=== PATIENT | female | born 1980 | race Caucasian/White ===

== ENCOUNTER → 2020-05-13 07:36 | Outpatient (CLI) | payer OTHER, SELFPAY ==
--- NOTE | 2020-05-12 17:38 | PCM.HP.BLA ---
History and Physical Date of Admission: 05/13/20 Louisa Jacobo 1980 ? ? REFERRING PHYSICIAN: Devin Mueller* ? CHIEF COMPLAINT: Consult ? HPI: The patient is a 40 year old female presents with abnormal left breast radiographs. She denies palpable breast masses. She denies nipple discharge. She denies previous breast biopsies or breast surgery. She denies breast pain. No family history of breast or ovarian cancer. Grandmother had cervical cancer. ? Mammograms 04/15/2020 There is a 6 mm irregular mass with an indistinct margin and pleomorphic calcifications in the left breast at 11 o'clock anterior depth. No other significant masses or calcifications are seen in the breast. US 04/15/2020 There is 0.6 cm x 0.5 cm x 0.4 cm irregular mass with an indistinct margin in the left breast at 11 o'clock middle depth 4 cm from the nipple. ?This irregular mass is hypoechoic with posterior acoustic shadowing. ?This correlates with mammography findings. IMPRESSION: SUSPICIOUS FINDING - BIOPSY SHOULD BE CONSIDERED The 0.6 cm x 0.5 cm x 0.4 cm irregular mass in the left breast is suspicious of malignancy. ?An ultrasound guided biopsy is recommended. ? ? PAST MEDICAL HISTORY ? Abnormal Pap smear of cervix 01/2014 ? Generalized anxiety disorder ? ? Hypertension ? ? PAST SURGICAL HISTORY ? VAGINOSCOPY ? 04/2014 ? ? Current Outpatient Medications ? metoprolol succinate ER (TOPROL XL) 25 mg 24 hr tablet Take 0.5 tablets by mouth daily at bedtime. ? famotidine (PEPCID) 20 mg tablet ? ? citalopram (CELEXA) 40 mg tablet Take 1 tablet by mouth once daily. ? polyethylene glycol 3350 (MIRALAX, GLYCOLAX) 17 gram/dose powder Take 17 g by mouth once daily. ? diazePAM (VALIUM) 5 mg tablet Take 1 tablet by mouth available for use prior to procedure for 1 day. ? albuterol HFA (PROVENTIL HFA, VENTOLIN HFA) 90 mcg/actuation inhaler Inhale 2 Puffs as instructed every 4 hours as needed. (Patient not taking: Reported on 01/24/2020 ? benzonatate (TESSALON PERLES) 100 mg capsule Take 1 capsule by mouth three times daily as needed. (Patient not taking: Reported on 01/24/2020 ? ranitidine (ZANTAC) 150 mg tablet Take 150 mg by mouth once daily. ? ? ALLERGIES: Lisinopril ? PERSONAL HISTORY: Social History ?Tobacco Use ? Smoking status: Never Smoker ? Smokeless tobacco: Never Used Substance Use Topics ? Alcohol use: Yes ? ? Comment: rare ? Drug use: No ? FAMILY HISTORY ? Heart disease Father ? ? Hypertension Maternal Grandfather ? ? Heart Maternal Grandfather ? ? Cancer Maternal Grandfather ? ? Heart Paternal Grandfather ? ? Ovarian cancer Maternal Grandmother 85 ? The review of systems data was entered by the nurse and reviewed by me ? Nursing Notes: Phuong Jhaveri LPN 04/20/2020 8:30 AM Signed REVIEW OF SYSTEMS: General: The patient denies fatigue, denies weight loss, denies weight gain, denies feeling hot, and denies feelings of cold. Eyes: The patient denies glaucoma, denies eye injury/surgery, wears glasses or contacts. Ear/Nose/Throat: The patient NOTES allergies, denies hayfever, denies ear infections, and denies bloody noses. Cardiovascular: The patient denies chest pain, denies heart disease, NOTES high blood pressure,denies cardiac stent, denies prior heart attack, denies irregular heart beat, denies high cholesterol, denies poor circulation, denies heart failure, other cardiac issues, denies claudication, denies cold feet, denies peripheral arterial stent. Respiratory: The patient denies tuberculosis, denies pneumonia, denies frequent cough, denies pulmonary embolism, denies shortness of breath, and denies coughing up blood. Gastrointestinal: The patient denies difficulty swallowing, NOTES acid reflux, denies ulcers, denies vomiting, denies jaundice/hepatitis, denies gallbladder problems, denies black or tarry stools, denies hemorrhoids, denies bleeding from rectum, denies diverticulitis, NOTES constipation, denies diarrhea, denies loss of stool control, and denies hernias. Kidney/Bladder: The patient denies kidney stones, denies urine infections, and denies bloody urine. Skin: The patient denies a history of skin cancer, denies bleeding/changing moles, and denies a history of skin rash. Neurologic: The patient denies a history of epilepsy/convulsions, denies headaches, denies head/spinal injuries, and denies stroke/TIA. Psychiatric: The patient denies psychiatric medications, denies depression, and denies voices, denies substance abuse. Endocrine: The patient denies thyroid disorders, denies diabetes, and denies hormonal problems. Hematologic: The patient denies a history of bruising, denies bleeding, and denies anemia, denies blood clots. Infections: The patient NOTES a history of measles and mumps, denies rheumatic fever, and NOTES sexually transmitted diseases. Musculoskeletal: The patient denies back pain/injury, denies back problems, denies sciatica, denies knee/foot trouble, denies arthritis, or denies gout. Obstetrical: menarche onset at age 12, , first at age 23, breast feeding denies, BCP use in early 20s for 7 y, LMP mid Mar When was patient's last Mammogram screening? 04/2020 Last Colonoscopy: none Phuong Jhaveri LPN ? PHYSICAL EXAMINATION: General: The patient is 40 year old female, well nourished, well hydrated in no acute distress. The patient is oriented to time, place, and person. VITALS: Blood pressure 160/106, pulse 80, temperature (!) 35.9 ?C (96.6 ?F), temperature source Temporal Artery, weight 134.7 kg (297 lb), last menstrual period 01/13/2020, SpO2 94 %. Body mass index is 44.5 kg/m?. Head ? Normocephalic. EOM intact with sclera clear and no icterus noted. Mouth with mucus membranes moist. Neck - supple with no jugular venous distention noted. Trachea is midline. No carotid bruits noted. No thyroid enlargement or thyroid nodules detected. No masses noted. Chest/breast ? no asymmetry of breasts noted, no suspicious skin lesions noted, no nipple discharge and both nipples everted, no breast masses noted Lungs ? clear to auscultation. Normal breath sounds. No rales/rhonchi/wheezing noted. No labored breathing noted, such as retractions. No cough heard. Heart ? normal S1 and S2 auscultated. No rubs/clicks/murmurs noted. Regular rate. Abdomen ? soft and benign. Normal bowel sounds No abdominal bruits noted. Difficult to determine if any masses or organomegaly due to body habitus. Extremities ? no calf tenderness noted. No pitting edema noted. Skin ? normal skin integrity. Lymph ? no cervical adenopathy detected, no supraclavicular adenopathy detected, no axillary adenopathy detected Neurological ? gait normal, no focal deficits noted Psych ? calm and appropriate RADIOLOGIC STUDIES: As Noted ? ? IMPRESSION: abnormal left breast radiographs ? PLAN: I have discussed the above with the patient. I have reviewed the abnormal breast radiographs with the patient and pointed out the abnormalities. I have offered left stereotactic breast biopsy I have explained the procedure to the patient. I have counseled the patient as to the risks of the procedure, including but not limited to: infection, bleeding, injury to any blood vessels/nerves, scar tissue, wound infections, complications of anesthesia, etc. ? the patient understands. The patient wishes to proceed. I have answered all questions to the patient?s satisfaction and the patient has no further questions. . Diagnoses: (F41.9) Anxiety (primary encounter diagnosis) (R92.8) Abnormal mammogram (R92.8) Abnormal ultrasound of breast Return to Clinic: The patient is instructed to follow-up with me after the procedure. ? Ree Coelho MD
--- NOTE | 2020-05-13 08:00 | BRBX_PTH ---
PATIENT: KIM LIU LOC: [facility] U#:[id number] AGE/SX: 45/F ROOM: RE05/13/[address]: Dr. Ree Coelho MD : 1980 BED: DIS: SPEC #: [id number] RECD: 05/13/20 09:11 STATUS: CAMILA RONEN #: [id number] MARKIE: 05/13/20 08:[address]: Ree Coelho DEPT: SURGICAL PATHOLOGY RECD BY: Rei Berman ENTERED: 05/13/20 10:25 SP TYPE: BREAST BX OT DR: Dr. Timur Rios DO Tissues: Left breast, NOS Procedures: Surgery Specimen Level IV HEADER OPERATION: Left breast stereotactic biopsy PRE-OP DIAGNOSIS: Left breast calcifications 11 o'clock TISSUE SUBMITTED: Left breast core tissue ISCHEMIC TIME: 1.5 minutes FIXATION TIME: 11.5 hours MICROSCOPIC DIAGNOSIS Left breast, calcifications 11 o'clock, stereotactic core biopsy: Focal fat necrosis, chronic inflammation, fibrosis and dystrophic calcifications. Negative for atypia or malignancy. See comment. JOSÉ:mary 05/14/20 COMMENT Correlation with clinical, radiologic findings and appropriate follow up are necessary. Case has been reviewed in consultation with Dr. Valdez who concurs with the above diagnosis. IDC:AM MICROSCOPIC DESCRIPTION Slides are reviewed. GROSS DESCRIPTION Received in fixative is one container labeled with the patient name and designated left breast. The specimen consists of multiple elongated fragments of mills-yellow fibroadipose tissue that in aggregate measure 5 x 3 x 0.3 cm. The entire specimen is submitted in two cassettes. / JOSÉ:mary 05/13/20 TC:5 CPT: 26634
--- NOTE | 2020-05-13 09:34 | OP.PCM_ITS ---
Report of Operation Date of Procedure: 05/13/20 Pre-Operative Diagnosis: abnormal calcifications on left breast mammograms Post-Operative Diagnosis: same Surgery/Procedure Performed:: left stereotactic breast biopsy Description of Surgical Findings:: abnormal calcification - upper mid breast Type of Anesthesia:: Local - 1% xylocaine Specimen's removed: left breast tissue Estimated Blood Loss (mL): minimal Description of Procedure: After informed consent was given, the patient was brought into the Breast Biopsy suite. Appropriate time out protocol was followed. The patient was placed in the prone position on the stereotactic biopsy table. The patient?s left breast was then placed in the opening at the head of the biopsy table. A erosion control coordinator compression mammogram was then obtained in the CC view. The suspicious radiological lesion was thus identified. Stereo pictures of the lesion were then taken for XYZ coordinates. The Mammotome biopsy stylus was then positioned where it would be entering into the patient?s breast. The skin at this site was then cleansed with a surgical skin preparation. The skin and subcutaneous tissues at this site were then infiltrated with 1% xylocaine. A small skin incision was made with an 11 blade scalpel. The biopsy stylus was then positioned into the patient?s breast at the proper coordinates of depth. Using the Mammotome vacuum-assist device, several core samples of breast tissue were obtained. A specimen mammogram was the obtained. It revealed that the abnormal calcifications were within the specimen. I reviewed this personally and concluded that the tissue sampling was adequate. A hemostatic marker clip was then placed into the biopsy cavity and a erosion control coordinator film revealed that it was properly deployed. The patient was then placed in the supine position and pressure was applied to the breast until no active bleeding was noted. A nylon suture was applied to reapproximate the skin. Sterile dressing was applied. A unilateral mammogram in the CC and MLO view were then taken which revealed that the marker clip was in the same area as the previous suspicious lesion. The patient tolerated the procedure well and was discharged from the Breast Biopsy suite in good condition. - Complications none noted
== END ==
PROVIDERS: PCP Student in an Organized Health Care Education/Training Program; Referring Provider Surgery; Visit Provider Surgery
DX: R92.8 Other abnormal and inconclusive findings on diagnostic imaging of breast (principal)
CPT/HCPCS: 19081; 88305; J7050; A4648

== ENCOUNTER 2023-05-15 16:00 | Outpatient (RCR) | payer OTHER, SELFPAY ==
--- NOTE | 2023-04-27 07:10 | HP.OTEVAL_ITS ---
Patient's Visit Information Visit Information Visit Information: KIM LIU is a 43 year old F, referred to Occupational Therapy by LYNN RODRIGUEZ, with a diagnosis of right thumb pain. Date of Evaluation: 04/25/23 Occupational Therapist: Sydnee Solano, HEIDI/Toni, CHT Subjective Subjective: This 43 year old female was seen for OT eval with dx of right thumb pain. pt states she has had right thumb pain with cracking and pop in her right thumb. pt states this has been going on for about 6 months. 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 pt states swiping her phone with her thumb. states she did tape her thumb to prevent pain. pt states it almost feels like a tendon is snapping and it hurts when its does this then goes away. Pain right thumb: Current Pain Intensity: 0 Pain Intensity Range: 3 ROM Wrist: right 70/70 left 70/70 CMC: right 10 left 15 MP: right 50 left 45 IP: right 50 left 70 Radial Abduction: right 45 left 50 Strength [employer]: right 50# left 40# Lateral Pinch: right 10# left 6# Tripod Pinch: right 6# left 8# Strength Comments: pt demo with hyper extension at MCP Sensation Sensation Comments: denies Quick DASH-Disab of Arm,Shoulder& Hand Quick DASH Score: 21.6650 Goals Goal:: pt will demo a increase in right lateral and tripod pinch by 4# indication of increase thumb stabilization to increase ind with ADLs and IADLs. Goal:: pt will report no pain greater than 1/10 with use of right hand with ADLs and IADLs by d.c. Goal:: Pt will demo understanding of work/lifting and carry ergonomics to decrease stress on tendons to increase pts independent with ADLs, IADLS and work tasks by d/c. Pt will demo understanding of using supportive bracing 80% of workday/ADLS to decrease stress on tendon origin to allow healing and decrease pain by end of 2nd session. 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 This instability increases stress on tendon structure and increase pain of right thumb with daily tasks. Pt demo need for skilled OT services 1-2x for 4 weeks to decrease pts right CMCJ pain, increase stability, ed. on bracing or supportive tape- to return pt to PLOF. Pt demo understanding and agree to POC. Rehabilitation Potential: Good Anticipated Interventions Anticipated Interventions: A/AAROM/PROM, Strengthening, Modalities, Orthoses, Joint Protection/Energy Conservation and Education re Diagnosis Visit Plan Frequency: 1-2x /Week Duration: 4 Weeks TEXT: Thank you for the opportunity to evaluate your patient. For Medicare and Medicare HMO plans, please review the plan of care and approve it. It will need to be FAXED BACK to us at [phone] for Medicare purposes. Please let me know if there are questions or concerns regarding this plan of care. Physician Signature: Date:
--- NOTE | 2023-10-17 15:14 | HP.OTDCSUM ---
Discharge Summary D/C Summary: It has been my pleasure to treat KIM LIU under orders from LYNN RODRIGUEZ, for the diagnosis of right thumb pain for a total of 7 visit(s). Please see the following information for a summary of their discharge status. Overall Improvement % Improvement: 50 Objective Objective/Function: RA 50* increase by 10 * right professor of business 45# right lateral pinch 10# right tripod pinch 10# Goals Patient Goals: Decrease Pain and Use Hand/Wrist/Arm Normally Again Goal:: pt will demo a increase in right lateral and tripod pinch by 4# indication of increase thumb stabilization to increase ind with ADLs and IADLs. Goal:: pt will report no pain greater than 1/10 with use of right hand with ADLs and IADLs by d.c. Goal:: Pt will demo understanding of work/lifting and carry ergonomics to decrease stress on tendons to increase pts independent with ADLs, IADLS and work tasks by d/c. Pt will demo understanding of using supportive bracing 80% of workday/ADLS to decrease stress on tendon origin to allow healing and decrease pain by end of 2nd session. Plan Plan: pt to return to due to limited gains D/C Information d/c sentence: If there are questions or concerns regarding this patient's occupational therapy, please fell free to call me at [phone]. Thank you for the referral of this patient. Sincerely, Sydnee Solano, OTR/L, CHT
== END 2023-05-15 19:00 | disposition home or self-care (01) ==
LOC: OT 16:00
PROVIDERS: PCP Student in an Organized Health Care Education/Training Program
DX: M79.644 Pain in right finger(s) (principal)
CPT/HCPCS: 97035; 97110; 97140; 97166; 97530